=== PATIENT | female | born 1975 | race Caucasian/White ===

== ENCOUNTER 2016-07-06 14:06 | Emergency (ER) | payer MEDICARE, MEDICAID ==
[~2016-07-06] VITALS: Ht 157.5 cm; Wt 53.0 kg
[~2016-07-06 14:06] MED LIST: ACCUPRIL5 MG PO; AMOXICILLIN/CL875 MG PO; ASPIRIN 81 LOW81 MG PO; BACID PO; BACTRIM DS1 TAB PO; CARVEDILOL25 MG PO; CARVEDILOL6.25 MG PO; CEPHALEXIN500 MG PO; CIPROFLOXACIN500 M1 PO; CLONAZEPAM0.5 MG PO; DIAZEPAM5 MG PO; FERR SULFATE325 MG PO; FIORICET PO; FLEXERIL5 MG PO; FLUOXETINE10 M2 PO; GNP VITAMIN B PO; HYDROCHLOROT25 MG PO; HYDROCO/APAP1 T13 PO; LASIX 20 MG TAB20 MG PO; LORTAB 10-325 M1 TAB PO; LORTAB 5/3255 MG PO; LORTAB5 PO; METRONIDAZOL500 MG PO; MIRTAZAPINE30 MG PO; MUCINEX D1 TAB PO; NITROSTAT0.4 MG SL; NORVASC2.5 MG PO; POTASSIUM CHLO10 MEQ PO; PROAIR HFA IN; PROZAC20 MG PO; SEROQUEL100 MG PO; SINEMET CR PO; SULFASALAZIN500 M1 PO; TRAZODONE50 MG PO
[2016-07-06 15:43] LABS: HEMATOCRIT 35.3 % (37.0-47.0); HEMOGLOBIN 11.4 g/dl (12.0-16.0); IMMATURE GRANULOCYTES 0.5 % (0.0-1.0); MEAN CELL VOLUME 94.6 fL CALC (80.0-100.0); MEAN CORPUSCULAR HGB 30.6 pG CALC (26.0-32.0); MEAN CORPUSCULAR HGB CONC 32.3 g/L CALC (32.0-36.0); NEUT# 4.07 thou/uL (2.00-7.15); RED BLOOD COUNT 3.73 mill/uL (4.20-5.60); RED CELL DISTRI WIDTH 14.6 % (11.5-15.5)
[2016-07-06 15:59] LABS: ALBUMIN 3.9 g/dL (3.2-5.0); BILIRUBIN, TOTAL 0.3 mg/dL (0.0-1.4); CALCIUM 9.8 mg/dL (8.4-10.2); CREATININE 1.2 mg/dL (0.5-1.0); POTASSIUM 4.4 mmol/l (3.5-5.1); TOTAL PROTEIN 7.5 g/dL (6.3-8.2)
[2016-07-06 16:41] LABS: URINE BILIRUBIN - DIPSTICK NEGATIVE (NEGATIVE); URINE BLOOD DIPSTICK TRACE-INTACT (NEGATIVE); URINE COLOR YELLOW; URINE GLUCOSE - DIPSTICK NEGATIVE (NEGATIVE); URINE KETONE NEGATIVE (NEGATIVE); URINE LEUK ESTERASE NEGATIVE (NEGATIVE); URINE NITRITE - DIPSTICK NEGATIVE (Negative); URINE PH 6.5 (4.5-8.0); URINE PROTEIN - DIPSTICK 30 mg/dL (NEG-TRACE); URINE SPECIFIC GRAVITY 1.025; URINE UROBILINOGEN - DIPSTICK 0.2 E.U./dL (0.2)
[2016-07-06 16:45] LABS: URINE CLARITY HAZY
[2016-07-06 16:54] LABS: URINE RBC 0-2 RBC/hpf (0-5); URINE SQUAMOUS EPITHELIAL CELL MODERATE EPI/hpf (0-FEW); URINE WBC 0-2 WBC/hpf (0-5)
[2016-07-06 18:57] VITALS: BP 115/71
== END 2016-07-06 18:57 | disposition short-term general hospital (02) ==
LOC: ED 14:06
PROVIDERS: Emergency Medicine
DX: R10.9 Unspecified abdominal pain (principal); R50.9 Fever, unspecified; G20 Parkinson's disease; K21.9 Gastro-esophageal reflux disease without esophagitis; I12.9 Hypertensive chronic kidney disease with stage 1 through stage 4 chronic kidney disease, or unspecified chronic kidney disease; N18.3 Chronic kidney disease, stage 3 (moderate); F17.210 Nicotine dependence, cigarettes, uncomplicated; I25.2 Old myocardial infarction; Z90.5 Acquired absence of kidney; Z86.711 Personal history of pulmonary embolism; Z86.73 Personal history of transient ischemic attack (TIA), and cerebral infarction without residual deficits
CPT/HCPCS: J0692

== ENCOUNTER 2017-01-29 17:28 | Emergency (ER) | payer MEDICARE, OTHER ==
[~2017-01-29] VITALS: Ht 157.5 cm; Wt 56.0 kg
[2017-01-29] MEDS ORDERED: AMOX/K CLAV875 M1 PO (18:39)
[2017-01-29] MEDS ORDERED: CLARITIN10 M1 PO (18:39)
[2017-01-29] MEDS ORDERED: FLONASE AL50 MCG/ACT (18:39)
[2017-01-29 18:55] VITALS: BP 133/84
== END 2017-01-29 18:55 | disposition home or self-care (01) ==
LOC: ED 17:28
DX: J02.9 Acute pharyngitis, unspecified (principal); R50.9 Fever, unspecified; R09.81 Nasal congestion

== ENCOUNTER 2018-01-12 23:02 | Emergency (ER) | payer MEDICARE, OTHER ==
[~2018-01-12] VITALS: Ht 157.5 cm; Wt 53.0 kg
[~2018-01-12 23:02] MED LIST changes: +AMOX/K CLAV875 M1 PO; +CLARITIN10 M1 PO; +FLONASE AL50 MCG/ACT
[2018-01-12] MEDS ORDERED: CEPHALEXIN500 M1 PO (23:43)
[2018-01-12] MEDS ORDERED: IVERMECTIN3 MG PO (23:43)
[2018-01-12 23:55] VITALS: BP 139/93
== END 2018-01-12 23:55 | disposition home or self-care (01) ==
LOC: ED 23:02
DX: B76.9 Hookworm disease, unspecified (principal); L03.116 Cellulitis of left lower limb; G20 Parkinson's disease; N18.9 Chronic kidney disease, unspecified; I25.2 Old myocardial infarction; F32.9 Major depressive disorder, single episode, unspecified; F17.210 Nicotine dependence, cigarettes, uncomplicated

== ENCOUNTER 2018-05-25 15:25 | Emergency (ER) | payer MEDICARE ==
[~2018-05-25] VITALS: Ht 157.5 cm; Wt 54.5 kg
[~2018-05-25 15:25] MED LIST changes: +CEPHALEXIN500 M1 PO; +IVERMECTIN3 MG PO
[2018-05-25] MEDS ORDERED: FOLIC ACID1 MG PO (15:36)
[2018-05-25] MEDS ORDERED: AMOXICILLIN875 MG PO (17:23)
[2018-05-25] MEDS ORDERED: TESSALON PERLE100 MG PO (17:25)
[2018-05-25 17:30] VITALS: BP 124/92
== END 2018-05-25 17:30 | disposition home or self-care (01) ==
LOC: ED 15:25
DX: S80.02XA Contusion of left knee, initial encounter (principal); R05 Cough; G20 Parkinson's disease; F17.210 Nicotine dependence, cigarettes, uncomplicated; W19.XXXA Unspecified fall, initial encounter

== ENCOUNTER 2018-11-06 17:27 | Emergency (ER) | payer MEDICARE, OTHER ==
[~2018-11-06] VITALS: Ht 157.5 cm; Wt 53.6 kg
[~2018-11-06 17:27] MED LIST changes: +AMOXICILLIN875 MG PO; +FOLIC ACID1 MG PO; +TESSALON PERLE100 MG PO
[2018-11-06] MEDS ORDERED: TRAMADOL HYDROC50 MG PO (19:48)
[2018-11-06] MEDS ORDERED: AMOX/K CLAV875 M1 PO (19:48)
[2018-11-06 20:45] VITALS: BP 164/86
== END 2018-11-06 20:45 | disposition home or self-care (01) ==
LOC: ED 17:27
PROC: 0HQGXZZ Repair Left Hand Skin, External Approach (ICD-10-PCS; principal; 2018-11-06)
DX: S61.251A Open bite of left index finger without damage to nail, initial encounter (principal); G20 Parkinson's disease; N18.9 Chronic kidney disease, unspecified; F17.200 Nicotine dependence, unspecified, uncomplicated; W54.0XXA Bitten by dog, initial encounter

== ENCOUNTER 2019-03-01 07:42 | Emergency (ER) | payer MEDICARE, OTHER ==
[~2019-03-01] VITALS: Ht 157.5 cm; Wt 54.5 kg
[~2019-03-01 07:42] MED LIST changes: +TRAMADOL HYDROC50 MG PO
[2019-03-01] MEDS ORDERED: CARVEDILOL6.25 MG PO (07:57)
[2019-03-01] MEDS ORDERED: AMOX/K CLAV875 M1 PO ×2 (09:18→15:55)
[2019-03-01] MEDS ORDERED: PROVENTIL108 MCG/AC IN ×2 (09:18→15:55)
[2019-03-01] MEDS ORDERED: TAM75CAP PO ×2 (09:18→15:55)
[2019-03-01 09:22] VITALS: BP 151/97
== END 2019-03-01 09:33 | disposition home or self-care (01) ==
LOC: ED 07:42
DX: J02.0 Streptococcal pharyngitis (principal); J45.909 Unspecified asthma, uncomplicated; I12.9 Hypertensive chronic kidney disease with stage 1 through stage 4 chronic kidney disease, or unspecified chronic kidney disease; N18.9 Chronic kidney disease, unspecified; G20 Parkinson's disease; I25.2 Old myocardial infarction; F17.210 Nicotine dependence, cigarettes, uncomplicated; Z20.828 Contact with and (suspected) exposure to other viral communicable diseases

== ENCOUNTER 2021-11-29 13:28 | Emergency (ER) | payer MEDICARE, OTHER ==
[~2021-11-29] VITALS: Ht 157.5 cm; Wt 54.0 kg
[~2021-11-29 13:28] MED LIST changes: +PROVENTIL108 MCG/AC IN; +TAM75CAP PO
[2021-11-29] MEDS ORDERED: NAPROXEN500 MG PO (15:17)
[2021-11-29] MEDS ORDERED: METHOCARBAMOL500 MG PO (15:17)
[2021-11-29 15:27] VITALS: BP 154/109
== END 2021-11-29 16:23 | disposition home or self-care (01) ==
LOC: ED 13:28
DX: S40.021A Contusion of right upper arm, initial encounter (principal); I12.9 Hypertensive chronic kidney disease with stage 1 through stage 4 chronic kidney disease, or unspecified chronic kidney disease; N18.9 Chronic kidney disease, unspecified; I25.2 Old myocardial infarction; F32.A Depression, unspecified; G20 Parkinson's disease; F17.200 Nicotine dependence, unspecified, uncomplicated; W13.3XXA Fall through floor, initial encounter; Y92.009 Unspecified place in unspecified non-institutional (private) residence as the place of occurrence of the external cause

== ENCOUNTER 2022-02-24 12:45 | Emergency (ER) | payer MEDICARE, OTHER ==
[~2022-02-24] VITALS: Ht 157.5 cm; Wt 55.0 kg
[2022-02-24] VITALS (18 sets, daily range): BP systolic 163–207; BP diastolic 95–121
[~2022-02-24 12:45] MED LIST changes: +METHOCARBAMOL500 MG PO; +NAPROXEN500 MG PO
[2022-02-24 13:54] LABS: HEMATOCRIT 37.9 % (37.0-47.0); HEMOGLOBIN 12.3 g/dl (12.0-16.0); IMMATURE GRANULOCYTES 0.2 % (0.0-5.0); MEAN CORPUSCULAR HGB 32.1 pG CALC (26.0-32.0); MEAN CORPUSCULAR HGB CONC 32.5 g/dL CAL (32.0-36.0); NEUT# 7.38 thou/uL (2.00-7.15); RED BLOOD COUNT 3.83 mill/uL (4.20-5.60); RED CELL DISTRI WIDTH 13.1 % (11.5-15.5)
[2022-02-24 14:12] LABS: PROTHROMBIN TIME 9.8 SECONDS (9.0-12.5)
[2022-02-24 15:27] LABS: URINE BILIRUBIN - DIPSTICK NEGATIVE (NEGATIVE); URINE BLOOD DIPSTICK LARGE (NEGATIVE); URINE COLOR YELLOW; URINE GLUCOSE - DIPSTICK NEGATIVE (NEGATIVE); URINE KETONE NEGATIVE (NEGATIVE); URINE LEUK ESTERASE NEGATIVE (NEGATIVE); URINE PROTEIN - DIPSTICK 30 mg/dL (NEG-TRACE); URINE SPECIFIC GRAVITY 1.025; URINE UROBILINOGEN - DIPSTICK 0.2 E.U./dL (0.2)
[2022-02-24 15:31] LABS: URINE NITRITE - DIPSTICK NEGATIVE (Negative)
[2022-02-24 15:42] LABS: URINE CALCIUM OXALATE CRYSTALS MANY lpf; URINE SQUAMOUS EPITHELIAL CELL FEW EPI/hpf (0-FEW); URINE WBC 0-2 WBC/hpf (0-5); URINE YEAST FEW hpf
[2022-02-24] MEDS ORDERED: AMLODIPINE BESY10 MG PO (16:20)
[2022-02-24] MEDS ORDERED: PROVERA10 MG PO (19:37)
== END 2022-02-24 20:01 | disposition home or self-care (01) ==
LOC: ED 12:45
PROVIDERS: Emergency Medicine
DX: N93.8 Other specified abnormal uterine and vaginal bleeding (principal); I12.9 Hypertensive chronic kidney disease with stage 1 through stage 4 chronic kidney disease, or unspecified chronic kidney disease; N18.9 Chronic kidney disease, unspecified; G20 Parkinson's disease; I25.2 Old myocardial infarction; F17.200 Nicotine dependence, unspecified, uncomplicated; Z90.721 Acquired absence of ovaries, unilateral; Z90.5 Acquired absence of kidney

== ENCOUNTER 2022-07-16 13:47 | Emergency (ER) | payer MEDICARE, OTHER ==
[2022-07-16] VITALS (19 sets, daily range): BP systolic 161–218; BP diastolic 90–117
[~2022-07-16] VITALS: Ht 157.5 cm; Wt 52.1 kg
[~2022-07-16 13:47] MED LIST changes: +AMLODIPINE BESY10 MG PO; +PROVERA10 MG PO
[2022-07-16] MEDS ORDERED: AMLODIPINE BESY10 MG PO (17:57)
[2022-07-16] MEDS ORDERED: AMOX/K CLAV875 M1 PO (17:57)
== END 2022-07-16 18:06 | disposition home or self-care (01) ==
LOC: ED 13:47
DX: H66.91 Otitis media, unspecified, right ear (principal); I12.9 Hypertensive chronic kidney disease with stage 1 through stage 4 chronic kidney disease, or unspecified chronic kidney disease; N18.9 Chronic kidney disease, unspecified; G20 Parkinson's disease; F32.A Depression, unspecified; F17.200 Nicotine dependence, unspecified, uncomplicated; I25.2 Old myocardial infarction; T46.5X6A Underdosing of other antihypertensive drugs, initial encounter; Z91.128 Patient's intentional underdosing of medication regimen for other reason; Z90.5 Acquired absence of kidney; Z20.822 Contact with and (suspected) exposure to COVID-19

== ENCOUNTER 2022-08-31 05:50 | Emergency (ER) | payer MEDICARE, OTHER ==
[2022-08-31] VITALS (14 sets, daily range): BP systolic 91–133; BP diastolic 59–90
[~2022-08-31] VITALS: Ht 157.5 cm; Wt 54.0 kg
[2022-08-31 06:38] LABS: ALKALINE PHOSPHATASE 139 u/l (38-126); AMYLASE 83 u/l (30-110); ANION GAP 17 (6-22 (CALC)); BILIRUBIN, TOTAL 0.5 mg/dL (0.02-1.3); BUN 22 mg/dL (7-17); BUN/CREATININE RATIO 13 (12-20 (CALC)); CARBON DIOXIDE 21 mmol/l (22-30); CHLORIDE 108 mmol/l (95-108); CREATININE 1.7 mg/dL (0.5-1.0); GFR FOR AFR.AMER. 39 ML/MIN (>=60 (CALC)); GFR OTHER RACES 32 ML/MIN (>=60 (CALC)); LIPASE 141 u/l (23-300); POTASSIUM 4.6 mmol/l (3.5-5.1); SGOT/AST 27 u/l (14-36); SODIUM 141 mmol/l (137-146)
[2022-08-31 06:40] LABS: ALBUMIN 5.1 g/dL (3.2-5.0); TOTAL PROTEIN 8.7 g/dL (6.3-8.2)
[2022-08-31 06:59] LABS: BASO% 0.1 % (0-3); EOS% 0.5 % (0-8); HEMATOCRIT 46.7 % (37.0-47.0); HEMOGLOBIN 14.8 g/dl (12.0-16.0); IMMATURE GRANULOCYTES 0.3 % (0.0-5.0); LYMPH% 2.2 % (15-41); MEAN CORPUSCULAR HGB 29.1 pG CALC (26.0-32.0); MEAN CORPUSCULAR HGB CONC 31.7 g/dL CAL (32.0-36.0); MONO% 5.1 % (2-13); NEUT# 20.24 thou/uL (2.00-7.15); NEUT% 91.8 % (42-76); RED BLOOD COUNT 5.09 mill/uL (4.20-5.60); RED CELL DISTRI WIDTH 15.5 % (11.5-15.5)
[2022-08-31 07:00] LABS: MEAN CELL VOLUME 91.7 fL CALC (80.0-100.0)
[2022-08-31 07:03] LABS: URINE BILIRUBIN - DIPSTICK NEGATIVE (NEGATIVE); URINE BLOOD DIPSTICK NEGATIVE (NEGATIVE); URINE COLOR YELLOW; URINE GLUCOSE - DIPSTICK NEGATIVE (NEGATIVE); URINE KETONE NEGATIVE (NEGATIVE); URINE LEUK ESTERASE TRACE (NEGATIVE); URINE PROTEIN - DIPSTICK 100 mg/dL (NEG-TRACE); URINE UROBILINOGEN - DIPSTICK 0.2 E.U./dL (0.2)
[2022-08-31 07:06] LABS: URINE NITRITE - DIPSTICK NEGATIVE (Negative)
[2022-08-31 07:08] LABS: URINE SQUAMOUS EPITHELIAL CELL MODERATE EPI/hpf (0-FEW)
[2022-08-31 07:09] LABS: URINE YEAST FEW hpf
[2022-08-31 07:10] LABS: URINE BACTERIA FEW hpf
[2022-08-31] MEDS ORDERED: ZOFRAN4 MG/TAB PO (09:06)
== END 2022-08-31 09:40 | disposition home or self-care (01) ==
LOC: ED 05:50
PROVIDERS: Emergency Medicine
DX: K52.9 Noninfective gastroenteritis and colitis, unspecified (principal); I12.9 Hypertensive chronic kidney disease with stage 1 through stage 4 chronic kidney disease, or unspecified chronic kidney disease; N18.9 Chronic kidney disease, unspecified; I25.2 Old myocardial infarction; G20 Parkinson's disease; F32.A Depression, unspecified; F17.200 Nicotine dependence, unspecified, uncomplicated